=== PATIENT | female | born 1960 | race Caucasian/White ===

== ENCOUNTER → 2020-07-28 | Outpatient (CLI) | payer BC ==
--- NOTE | 2020-08-07 08:41 | REP ---
MR ANGIOGRAPHY OF THE BRAIN WITHOUT CONTRAST HISTORY: Mechanical ptosis of bilateral eyelids. No comparison MR angiography. TECHNIQUE: 3D MR angiography is acquired. Maximum intensity projection images are generated. MR ANGIOGRAPHIC FINDINGS: The distal vertebral arteries are bilaterally patent, right is dominant in size. Basilar arteries widely patent. A persistent origin is observed in the left posterior cerebral artery. The posterior cerebral arteries are otherwise unremarkable. Superior cerebellar vessels are symmetric. The distal internal carotid arteries are unremarkable bilaterally. The anterior and middle cerebral arteries are intact bilaterally. The left A1 segment is smaller than the right but both are patent along with the anterior communicator. No sunshine aneurysm or arteriovenous malformation is seen. IMPRESSION: No significant abnormality. MTDD
== END ==
LOC: M RAD 13:03
PROVIDERS: ATTEND Ophthalmology
DX: H02.413 Mechanical ptosis of bilateral eyelids (principal)

== ENCOUNTER → 2020-09-29 | Outpatient (CLI) | payer BC ==
[~2020-09-29] MED LIST: E-Z-GAS II EFFERVESCENT PACKET (SODIUM BICARB./CITRIC ACID/SIMETHICONE) As Ordered ONE; E-Z-HD 98% w/w 340GM SUSP BTL As Ordered ONE; E-Z-PAQUE 96% w/w SUSP 176GM BTL As Ordered ONE
--- NOTE | 2020-09-29 15:05 | REP ---
INDICATION: DYSPHAGIA. COMPARISON: None TECHNIQUE: This procedure was performed by Danielle Anderson [facility], under the direct supervision of Dr. Kraus. Images were reviewed with Dr. Kraus prior to dictation. Liquid barium and gas producing crystals were given in the erect position, as well as liquid barium in the prone oblique position in order to perform a double contrast upper GI examination. FINDINGS: The tire servicer film shows no organomegaly or pathological masses. The intestinal gas pattern is unremarkable. The oral and pharyngeal stages of deglutition demonstrate a deviation of the hypopharyngeal structures to the left at the level of the piriformis sinuses and valleculae. This is most likely due to an extrinsic mass, CT of the neck with IV contrast is recommended.. Esophageal transport is prompt and efficient and there is no evidence of esophagitis, stricture, or mucosal ring. There is no evidence of a hiatal hernia. Gastroesophageal reflux was visualized to the level of the ayesha.. IMPRESSION: 1. There is a deviation of the hypopharyngeal structures to the left at the level of the piriformis sinuses and valleculae. This is most likely due to an extrinsic mass, CT of the neck with IV contrast is recommended. 2. Gastroesophageal reflux to the level of the ayesha. 0.2 minutes of fluoroscopy time was utilized for this procedure. Some fluoroscopic images are performed with last image hold technology. These images require no additional radiation. <Electronically signed by Danielle Anderson > 09/29/20 [id number] <Electronically signed by Adin Kraus > 09/29/20 [id number]
== END ==
LOC: M RAD 08:28
PROVIDERS: ATTEND Specialist
DX: R13.10 Dysphagia, unspecified (principal); K21.9 Gastro-esophageal reflux disease without esophagitis